=== PATIENT | female | born 1965 | race Caucasian/White ===

== ENCOUNTER → 2017-11-27 | Outpatient (CLI) | payer OTHER ==
[~2017-11-27] MED LIST: INTRINSI B12-F1 EACH PO; IRON150C; MULTI FOR HER1 EAC1 PO; OSTERA TABLET1 EACH PO
[2017-11-29 12:18] LABS: HPV Genotype 16 Not Detected (NOTDET); HPV Genotype 18 Not Detected (NOTDET)
[2017-12-02 09:23] LABS: HPV High Risk Other Not Detected (NOTDET)
== END | disposition home or self-care (01) ==
LOC: LAB 11:34
PROVIDERS: Obstetrics & Gynecology
DX: Z01.419 Encounter for gynecological examination (general) (routine) without abnormal findings (principal)
CPT/HCPCS: 87624; G0123

== ENCOUNTER 2018-07-12 19:55 | Emergency (ER) | payer OTHER ==
[~2018-07-12] VITALS: Ht 157.5 cm; Wt 74.8 kg
== END 2018-07-12 21:02 | disposition home or self-care (01) ==
LOC: ER 19:55
DX: F10.129 Alcohol abuse with intoxication, unspecified (principal); F17.200 Nicotine dependence, unspecified, uncomplicated; Z88.6 Allergy status to analgesic agent; Z91.013 Allergy to seafood
CPT/HCPCS: 99283

== ENCOUNTER 2020-02-04 09:24 | Emergency (ER) | payer OTHER ==
[~2020-02-04] VITALS: Ht 162.6 cm; Wt 90.7 kg
[2020-02-04] MEDS ORDERED: METO50 PO (10:07)
== END 2020-02-04 10:32 | disposition home or self-care (01) ==
LOC: ER 09:24
DX: R04.0 Epistaxis (principal); I10 Essential (primary) hypertension; Z88.6 Allergy status to analgesic agent; Z91.030 Bee allergy status; Z79.899 Other long term (current) drug therapy; F17.200 Nicotine dependence, unspecified, uncomplicated
CPT/HCPCS: 99283

== ENCOUNTER 2020-02-04 21:32 | Emergency (ER) | payer OTHER ==
[~2020-02-04] VITALS: Ht 162.6 cm; Wt 90.7 kg
[~2020-02-04 21:32] MED LIST changes: +METO50 PO
== END 2020-02-05 00:22 | disposition home or self-care (01) ==
LOC: ER 21:32
DX: R04.0 Epistaxis (principal); Z88.6 Allergy status to analgesic agent; Z91.013 Allergy to seafood
CPT/HCPCS: 99282

== ENCOUNTER 2022-12-12 10:33 | Inpatient (IN) | payer OTHER ==
[~2022-12-12] VITALS: Ht 162.6 cm; Wt 91.5 kg
[2022-12-12 12:02] LABS: BASOPHILS ABSOLUTE AUTO 0.06 K/mm3 (0.00-0.23); BASOPHILS PERCENT AUTO 1 % (0-2); EOSINOPHILS ABSOLUTE AUTO 0.22 K/mm3 (0.00-0.68); EOSINOPHILS PERCENT AUTO 2 % (0-6); Hematocrit 43.2 % (33.0-51.0); Hemoglobin 15.1 g/dL (11.5-16.0); IMMATURE GRAN ABSOLUTE AUTO 0.02 K/mm3 (0.00-0.10); IMMATURE GRAN PERCENT AUTO 0 % (0-1); LYMPHOCYTES ABSOLUTE AUTO 1.89 K/mm3 (0.84-5.20); LYMPHOCYTES PERCENT AUTO 19 % (21-46); MONOCYTES ABSOLUTE AUTO 0.98 K/mm3 (0.16-1.47); MONOCYTES PERCENT AUTO 10 % (4-13); Mean Corpuscular HGB 30.9 pg (26.0-34.0); Mean Corpuscular Volume 89 fL (80-100); Mean Platelet Volume 10.6 fL (9.1-12.4); NEUTROPHILS ABSOLUTE AUTO 6.74 K/mm3 (1.96-9.15); NEUTROPHILS PERCENT AUTO 68 % (41-73); Platelet Count 230 K/mm3 (150-400); RDW Coefficient Variation 12.8 % (11.7-14.2); RDW Standard Deviation 41.7 fL (35.1-46.3); Red Blood Cell Count 4.88 M/mm3 (3.80-5.20); White Blood Cell Count 9.91 K/mm3 (4.00-11.30)
[2022-12-12 12:22] LABS: Magnesium, Blood 2.2 mg/dL (1.6-2.4)
[2022-12-12 12:40] LABS: Albumin, Blood 3.7 g/dL (3.4-5.0); Albumin/Globulin Ratio 1.1 (0.8-1.8); Bilirubin, Total 0.7 mg/dL (0.1-1.0); Calcium, Blood 9.2 mg/dL (8.5-10.1); Creatinine, Blood 0.74 mg/dL (0.40-1.00); Globulin, Blood 3.4 g/dL (2.2-4.0); Potassium, Blood 4.2 mmol/L (3.5-5.5); Total Protein, Blood 7.1 g/dL (6.4-8.2)
[2022-12-12 16:15] LABS: D-Dimer, Quantitative 0.64 mg/L FEU (0.00-0.52); International Normalized Ratio 0.96; Prothrombin Time Results 10.1 Sec (9.7-11.5)
--- NOTE | 2022-12-12 23:15 | NUR ---
ADMIT NOTE HANDOFF RECEIVED FROM SERVICE OFFICER DARYA. PT ARRIVED TO FLOOR VIA WC. PT ORIENTED TO UNIT. CALL BUTTON WITHIN REACH. PERSONAL POSSESSIONS WITH PT. TELEMETRY IN PLACE.
--- NOTE | 2022-12-13 03:54 | NUR ---
SHIFT SUMMARY ADMITTED FROM ER FOR CVA THIS SHIFT. TELEMETRY: NSR @ 67 BPM. FULL CODE. CARDIAC DIET. A&O X4, ON RA. US OF BLE PERFORMED, AWAITING RESULTS. AWAITING MORNING LABS. DIFFICULTY WITH WORD FINDING AT TIMES, LEFT FACIAL DROOP NOTED.
[2022-12-13 05:23] LABS: CHOL/HDL RATIO 2.9; Cholesterol 157 mg/dL (50-200); HDL Cholesterol 54 mg/dL (>39); LDL/HDL RATIO 1.6; Low Density Lipoprotein Chol 84 mg/dL (0-110); Triglycerides 96 mg/dL (30-160); Very Low Density Lipoprot Chol 19 mg/dL (6-32)
--- NOTE | 2022-12-13 15:51 | NUR ---
HYPERTENSION 208/[address] GOLDMAN RE ABOVE, T.O. FOR ONE TIME DOSE OF 5MG IV METOPROLOL.
--- NOTE | 2022-12-13 17:16 | NUR ---
Shift Summary A/Ox4, pleasant/cooperative. Up ad sagar, independent with mobility. Electrical Fitter strenths are equal. L facial droop with slightly slurred speech, some drooling noted. Difficulty finding words and some memory impairment. Patient has been quite anxious about taking aspirin d/t hx of gastric bypass. Discussed risks vs benefits (gi bleed vs worsening CVA). BP has been elevated, discussed with Dr. Parrish after 185/104 bp. Ordered to monitor and give meds per EMAR. Tele: SR 74. Denies pain. Eating well.
--- NOTE | 2022-12-14 03:13 | NUR ---
Patient resting in bed at this time.
--- NOTE | 2022-12-14 18:49 | NUR ---
SHIFT SUMMARY: PT ALERT AND ORIENTED X4. PT HAS BEEN PLEASANT AND COOPERATIVE WITH ALL CARE. PT HAD VERY HIGH HYPERTENSION TODAY. NEW B/P MEDICATIONS ADDED TO EMAR. LAST B/P AT 155/90. PT WAS UP AND WALKING THROUGHOUT THE SHIFT. RECEIVED SEVERAL CALLS FROM TELEMETRY TODAY THAT PT HAD ABNORMAL RHYTHMS WHILE WALKING BUT WOULD BE BACK TO SINUS WHILE SITTING. PT ASYMPTOMATIC FOR ANY EKG CHANGES. PT CHANGED TO MECHANICAL SOFT WITH MEDICATIONS WHOLE ONE AT A TIME IN APPLESAUCE. PT HAS NOT C/O PAIN, NUMBNESS, N/V TODAY. PT DID HAVE SMALL NOSEBLEED. RECEIVED ORDER FOR NASAL DECONGESTANT WHICH PT REPORTED SHE TAKES AT HOME. FAMILY AT BEDSIDE. CALL LIGHT IN REACH. BED IN LOWEST POSITION. WILL CONTINUE TO MONITOR.
--- NOTE | 2022-12-15 03:01 | NUR ---
Patient resting in bed, no complaints of pain or discomfort.
[2022-12-15] MEDS ORDERED: AMLO5 PO (11:06)
[2022-12-15] MEDS ORDERED: ATOR40TA PO (11:07)
[2022-12-15] MEDS ORDERED: Aspir 8181 MG PO (11:07)
[2022-12-15] MEDS ORDERED: HYDRA25 PO (11:08)
[2022-12-15] MEDS ORDERED: CLOP75 PO (11:08)
--- NOTE | 2022-12-15 13:04 | NUR ---
DISCHARGE: PT DISCHARGED AT 1500 VIA AUTOMOBILE WITH TERRI. ALL D/C INSTRUCTIONS PROVIDED TO PT. PT UNDERSTANDS THE NEED TO TAKE BLOOD PRESSURE BEFORE MEDICATIONS AND IS AWARE OF A FOLLOW UP APPOINTMENT WITH PRIMARY DOCTOR ON DECEMBER 28 AT 10AM. PROVIDERS OFFICE WILL CALL PT IF SOONER APT BECOMES AVAILABLE. TELE OFF AND IV TAKEN OUT W/O COMPLICATIONS. ALL BELONGINGS SENT WITH PT.
== END 2022-12-15 12:54 | disposition home or self-care (01) | DRG 66 ==
LOC: ER 10:33 → MEDS 10:34
PROVIDERS: Physician Assistant; Student in an Organized Health Care Education/Training Program; ADMIT Internal Medicine
DX: I63.89 Other cerebral infarction (principal); R79.1 Abnormal coagulation profile; I44.7 Left bundle-branch block, unspecified; I10 Essential (primary) hypertension; F17.210 Nicotine dependence, cigarettes, uncomplicated; D50.9 Iron deficiency anemia, unspecified; R29.810 Facial weakness; R47.81 Slurred speech; Z23 Encounter for immunization; Z79.899 Other long term (current) drug therapy; Z88.8 Allergy status to other drugs, medicaments and biological substances; Z91.013 Allergy to seafood; Z98.84 Bariatric surgery status; Z90.49 Acquired absence of other specified parts of digestive tract; Z98.890 Other specified postprocedural states
CPT/HCPCS: 36415; 70450; 70496; 70498; 70551; 71045; 80053; 80061; 83036; 83735; 83880; 84484; 85025; 85379; 85610; 85651; 86140; 90686; 92610; 93005; 93010; 93306; 93970; 96372; 97116; 97161; 99285-25; A9270; G0008; G0378; J1650; Q9967

== ENCOUNTER → 2024-05-15 | Outpatient (CLI) | payer OTHER ==
[~2024-05-15] MED LIST changes: +AMLO5 PO; +ATOR40TA PO; +Aspir 8181 MG PO; +CLOP75 PO; +HYDRA25 PO; +Voltaren100 GM TOP
[2024-05-27 12:41] LABS: HPV HIGH RISK BY TMA Not Detected; HPV SOURCE Cervical/Vag
== END | disposition home or self-care (01) ==
LOC: LAB 18:40 → LAB SHORT 18:40
PROVIDERS: Obstetrics & Gynecology
DX: Z01.411 Encounter for gynecological examination (general) (routine) with abnormal findings (principal)
CPT/HCPCS: 87624; G0123

== ENCOUNTER → 2024-05-15 | Outpatient (CLI) | payer OTHER | LOC: LAB SHORT 07:31 → LAB 07:31 | DX: N95.0 Postmenopausal bleeding (principal) | CPT/HCPCS: 88305 ==

== ENCOUNTER 2024-05-28 11:48 | Inpatient (IN) | payer OTHER ==
[~2024-05-28] VITALS: Ht 162.6 cm; Wt 78.0 kg
[2024-05-28 12:14] LABS: BASOPHILS ABSOLUTE AUTO 0.04 K/mm3 (0.00-0.23); BASOPHILS PERCENT AUTO 0 % (0-2); EOSINOPHILS ABSOLUTE AUTO 0.01 K/mm3 (0.00-0.68); EOSINOPHILS PERCENT AUTO 0 % (0-6); Hematocrit 33.7 % (33.0-51.0); Hemoglobin 12.5 g/dL (11.5-16.0); IMMATURE GRAN ABSOLUTE AUTO 0.03 K/mm3 (0.00-0.10); IMMATURE GRAN PERCENT AUTO 0 % (0-1); LYMPHOCYTES ABSOLUTE AUTO 1.01 K/mm3 (0.84-5.20); LYMPHOCYTES PERCENT AUTO 9 % (21-46); MONOCYTES ABSOLUTE AUTO 0.68 K/mm3 (0.16-1.47); MONOCYTES PERCENT AUTO 6 % (4-13); Mean Corpuscular HGB 35.2 pg (26.0-34.0); Mean Corpuscular HGB Conc 37.1 g/dL (31.5-36.5); Mean Corpuscular Volume 95 fL (80-100); Mean Platelet Volume 9.5 fL (9.1-12.4); NEUTROPHILS ABSOLUTE AUTO 9.78 K/mm3 (1.96-9.15); NEUTROPHILS PERCENT AUTO 85 % (41-73); Platelet Count 189 K/mm3 (150-400); RDW Coefficient Variation 12.1 % (11.7-14.2); RDW Standard Deviation 42.5 fL (35.1-46.3); Red Blood Cell Count 3.55 M/mm3 (3.80-5.20); White Blood Cell Count 11.55 K/mm3 (4.00-11.30)
[2024-05-28 13:00] LABS: Albumin, Blood 3.1 g/dL (3.4-5.0); Albumin/Globulin Ratio 0.8 (0.8-1.8); Bun/Creatinine Ratio 15.4 (12.0-20.0); Calcium, Blood 9.5 mg/dL (8.5-10.1); Creatinine, Blood 0.58 mg/dL (0.40-1.00); Potassium, Blood 2.3 mmol/L (3.5-5.5); Total Protein, Blood 7.1 g/dL (6.4-8.2)
[2024-05-28] MEDS ORDERED: NS 1,000 ML IV SCH (13:10)
[2024-05-28] MEDS ORDERED: Metoclopramide HCl 5MG / ML 2ML Vial IV ONE (13:10)
[2024-05-28] MEDS ORDERED: Potassium Chloride 40 MEQ in NS 250 ML IV ONE (13:10)
[2024-05-28] MEDS ORDERED: Magnesium Sulf 2 GM/Water 50ML 50 ML IV ONE (14:20)
[2024-05-28 14:46] LABS: Influenza A, PCR NEGATIVE (NEGATIVE); Influenza B, PCR NEGATIVE (NEGATIVE); Resp Syncytial Virus, PCR NEGATIVE (NEGATIVE); SARS-Cov-2 (COVID-19) PCR, MMC NEGATIVE (NEGATIVE)
[2024-05-28] MEDS ORDERED: Acetaminophen 325 MG TABLET PO PRN (15:15)
[2024-05-28 15:20] LABS: Source, Urine Clean Catch
[2024-05-28] MEDS ORDERED: Ondansetron HCl 2 MG / ML 2ML Vial IV PRN (15:20)
[2024-05-28] MEDS ORDERED: Potassium Chloride 20 MEQ/15 ML UDC PO ONE (15:20)
[2024-05-28 15:43] LABS: Appearance, Urine Clear (Clear); Bilirubin, Urine Neg (Neg); Blood, Urine 1+ (Neg); Color, Urine Yellow (P-Yellow); Glucose Qualitative, Urine Neg (Neg); Ketones, Urine 1+ (Neg); Leukocyte Esterase, Urine Neg (Neg); Nitrite, Urine Neg (Neg); Protein, Urine Neg (Neg); Specific Gravity, Urine 1.005 (1.003-1.022); Urobilinogen, Urine NORM (Normal); pH, Urine 6.5 (5.0-8.0)
[2024-05-28 15:51] LABS: Bacteria Many /hpf; Squamous Epithelial Cells Few /hpf (Few); White Blood Cells, Urine 0-2 /hpf (0-5)
[2024-05-28] MEDS ORDERED: Pantoprazole Sodium 40 MG Injection IV SCH (16:00)
[2024-05-28] MEDS ORDERED: NS KCl 20mEq 1,000 ML IV SCH (16:00)
[2024-05-28 17:29] VITALS: BP 122/79
[2024-05-28] MEDS ORDERED: NS 250 ML IV PRN (18:00)
--- NOTE | 2024-05-28 18:34 | NUR ---
SHIFT SUMMARY PT A&OX3-4, VSS, BEDRIDDEN AT THIS TIME DUE TO WEAKNESS, TOLERATING PO, VOIDING, AND DENIED PAIN. KCL INFUSING AT 100 MLS/HR. CALL LIGHT WITHIN REACH AND PT ABLE TO MAKE NEEDS KNOWN.
[2024-05-28 19:19] LABS: Albumin, Blood 2.8 g/dL (3.4-5.0); Anion Gap 14 mmol/L (3-11); Blood Urea Nitrogen 9 mg/dL (8-24); Bun/Creatinine Ratio 14.7 (12.0-20.0); CO2, Blood 29 mmol/L (21-32); Calcium, Blood 8.5 mg/dL (8.5-10.1); Chloride, Blood 93 mmol/L (98-108); Creatinine, Blood 0.61 mg/dL (0.40-1.00); Glomerular Filtration Rate 104 (60-); Glucose, Blood 106 mg/dL (70-99); Magnesium, Blood 2.5 mg/dL (1.6-2.4); Phosphorus, Blood 1.9 mg/dL (2.5-4.9); Sodium, Blood 133 mmol/L (136-145)
[2024-05-28 19:38] VITALS: BP 131/93
[2024-05-28] MEDS ORDERED: Metoprolol Tartrate 50 MG Tab PO SCH (21:00)
[2024-05-28] MEDS ORDERED: Misc. Topical TOP SCH (21:00)
[2024-05-28] MEDS ORDERED: HydrALAZINE HCl 25 MG Tab PO SCH (21:00)
--- NOTE | 2024-05-29 03:34 | NUR ---
SHIFT SUMMARY PT. IS A&O X2-4, CONFUSED, NOT ABLE TO STAND UP WITH 2-PERSON ASSISTANCE D/T WEAKNESS, USING GAITBELT AND FWW IN ORDER TO AMBULATE STEPS TO THE BEDSIDE COMMODE. PT.IS ORIENTED TO SITUATION, PERSON AND SELF. PT.IS SLOW TO RESPOND, AND FOLLOW DIRECTION. SPEECH IS RAPID. PT. DENIES PAIN,SOB, DIZZINESS. WHEN AWAKE IN BED, PT. APPEARS NAUSEOUS, ABLE TO TAKE SMALL SIPS, AND ROLLS THE MEDICATION/PILL/OR CAPSULE IN HER MOUTH BEFORE ABLE TO SWALLOW IT DOWN. PT.REPORTS THAT HAVE NOT BEEN ABLE TO EAT FOR WEEKS. PT. IS ON LIQUID DIET; BROTH AND COLD DRINKS PROVIDED, POOR PO INTAKE DURING THIS SHIFT. PT. CONTINUES ON IV INFUSION NS KC1@100MLS/HR. AT HS PT.USED A BEDPAN D/T URGE TO HAVE A BM. PT. HAD A XXL DIARRHEA, DARK BROWN IN COLOR. WHEN CHECKED DURING Q1 TO PRN, PT.LAYING IN BED, SMILING, AND WEARING EYEGLASSES. BED ALARM FOR SAFETY. NO ACUTE EVENTS NOTED/REPORTED DURING THIS SHIFT. BED AT THE LOWEST POSITION, CALL LIGHT IN REACH, REORIENTED TO CALL LIGHT T/O THIS SHIFT. WILL HANDOFF TO THE INCOMING SHIFT NURSE.
[2024-05-29 03:52] VITALS: BP 154/99
[2024-05-29 05:14] LABS: Hematocrit 30.2 % (33.0-51.0); Hemoglobin 10.9 g/dL (11.5-16.0); Mean Corpuscular HGB 34.7 pg (26.0-34.0); Mean Corpuscular HGB Conc 36.1 g/dL (31.5-36.5); Mean Corpuscular Volume 96 fL (80-100); Mean Platelet Volume 9.7 fL (9.1-12.4); Platelet Count 158 K/mm3 (150-400); RDW Coefficient Variation 12.3 % (11.7-14.2); RDW Standard Deviation 43.1 fL (35.1-46.3); Red Blood Cell Count 3.14 M/mm3 (3.80-5.20); White Blood Cell Count 9.93 K/mm3 (4.00-11.30)
[2024-05-29 05:47] LABS: Albumin, Blood 2.7 g/dL (3.4-5.0); Albumin/Globulin Ratio 0.8 (0.8-1.8); Bilirubin, Total 1.5 mg/dL (0.1-1.0); Bun/Creatinine Ratio 13.6 (12.0-20.0); Calcium, Blood 8.2 mg/dL (8.5-10.1); Creatinine, Blood 0.44 mg/dL (0.40-1.00); Globulin, Blood 3.2 g/dL (2.2-4.0); Total Protein, Blood 5.9 g/dL (6.4-8.2)
[2024-05-29 07:14] VITALS: BP 147/99
[2024-05-29] MEDS ORDERED: Atorvastatin 40 MG Tab PO SCH (09:00)
[2024-05-29] MEDS ORDERED: AmLODIPine Besylate 5 MG Tab PO SCH (09:00)
[2024-05-29] MEDS ORDERED: Aspirin 81 MG TabEC PO SCH (09:00)
[2024-05-29] MEDS ORDERED: Clopidogrel Bisulfate 75 MG Tab PO SCH (09:00)
[2024-05-29] MEDS ORDERED: Enoxaparin 40 MG/0.4 ML SYR SC SCH (09:00)
[2024-05-29] MEDS ORDERED: Potassium Chloride 20 MEQ/15 ML UDC PO SCH (09:00)
[2024-05-29 14:36] VITALS: BP 140/93
--- NOTE | 2024-05-29 17:42 | NUR ---
SHIFT SUMMARY PT A&OX2-4 W/ CONFUSION AT TIMES, VSS, TOLERATING SMALL AMOUNTS OF PO, VOIDING, AND DENIED PAIN. PT DENIED N/V T/O SHIFT. PT CONT TO BE WEAK AND UNABLE TO AMB. SPEECH EVALUATED PT THIS AM DUE TO PT DIFFICULTY W/ TAKING MEDICATIONS, SEE SPEECH NOTES. KCL INFUSING AT 100 MLS/HR. NO OTHER ACUTE CHANGES THIS SHIFT. CALL LIGHT WITHIN REACH AND BED ALARM ON FOR SAFETY.
[2024-05-29 19:21] VITALS: BP 127/94
[2024-05-30 03:37] VITALS: BP 138/107
--- NOTE | 2024-05-30 03:56 | NUR ---
SHIFT SUMMARY PT. IS CONFUSED, THIS EXECUTIVE CHEF HELD ALL SCHEDULED HS MEDS D/T ASPIRATION RISK/ DIFFICULTY TO AROUSE THE PT. PT. STATES TO THIS EXECUTIVE CHEF:"DO YOU FEEL LIKE MONKEYING AROUND?" WHEN THIS EXECUTIVE CHEF REORIENTED THE PT. AND ASKED, "DO YOU KNOW WHERE YOU ARE?," PT. STATED:"[facility]." WHEN ASKED, HOW MANY GRANDCHILDREN DO YOU HAVE; PT. SHOWED TWO FINGERS UP. THIS EXECUTIVE CHEF CALLED AND UPDATED PT.'S SO PER HIS REQUEST. SO SHARED THAT PT AND HIM TAKE CARE OF HER TWO YOUNG GRANDDAUGHTERS MANAGER MEDICAL DEVICE. NS KCl INFUSING ORDERED. URINE ON PUREWIC CONTAINER CHARCOAL/ DARK KC COLOR. NO PO INTAKE DURING THIS SHIFT. PT. LAYING IN BED, DENIED A NEED FOR A BLANKET. SMILING ON AND OFF T/O THE NIGHT. BED AT THE LOWEST POSITION, CALL LIGHT IN REACH.WILL HANDOFF TO THE INCOMING SHIFT NURSE.
[2024-05-30 05:26] LABS: BASOPHILS ABSOLUTE AUTO 0.02 K/mm3 (0.00-0.23); BASOPHILS PERCENT AUTO 0 % (0-2); EOSINOPHILS ABSOLUTE AUTO 0.04 K/mm3 (0.00-0.68); EOSINOPHILS PERCENT AUTO 0 % (0-6); Hematocrit 31.9 % (33.0-51.0); Hemoglobin 11.7 g/dL (11.5-16.0); IMMATURE GRAN ABSOLUTE AUTO 0.08 K/mm3 (0.00-0.10); IMMATURE GRAN PERCENT AUTO 1 % (0-1); LYMPHOCYTES ABSOLUTE AUTO 1.37 K/mm3 (0.84-5.20); LYMPHOCYTES PERCENT AUTO 13 % (21-46); MONOCYTES ABSOLUTE AUTO 0.62 K/mm3 (0.16-1.47); MONOCYTES PERCENT AUTO 6 % (4-13); Mean Corpuscular HGB 35.3 pg (26.0-34.0); Mean Corpuscular HGB Conc 36.7 g/dL (31.5-36.5); Mean Corpuscular Volume 96 fL (80-100); Mean Platelet Volume 10.1 fL (9.1-12.4); NEUTROPHILS ABSOLUTE AUTO 8.49 K/mm3 (1.96-9.15); NEUTROPHILS PERCENT AUTO 80 % (41-73); Platelet Count 152 K/mm3 (150-400); RDW Coefficient Variation 12.5 % (11.7-14.2); RDW Standard Deviation 44.2 fL (35.1-46.3); Red Blood Cell Count 3.31 M/mm3 (3.80-5.20); White Blood Cell Count 10.62 K/mm3 (4.00-11.30)
[2024-05-30 05:43] LABS: Bun/Creatinine Ratio 10.8 (12.0-20.0); Calcium, Blood 7.6 mg/dL (8.5-10.1); Creatinine, Blood 0.37 mg/dL (0.40-1.00); Magnesium, Blood 1.4 mg/dL (1.6-2.4); Potassium, Blood 3.3 mmol/L (3.5-5.5)
[2024-05-30 07:50] VITALS: BP 139/108
[2024-05-30] MEDS ORDERED: Magnesium Sulf 2 GM/Water 50ML 50 ML IV ONE (08:00)
--- NOTE | 2024-05-30 10:41 | NUR ---
TELE NOTIFIED THIS NURSE OF PT QTC OF .65. PT ASYMPTOMATIC AND DENIED CHEST PAIN AND OR PRESSURE. THIS NURSE NOTIFIED DURING HER AM ROUND ON PT.
[2024-05-30] MEDS ORDERED: Prochlorperazine Edisylate 10 mg Vial IV PRN (10:55)
[2024-05-30] MEDS ORDERED: Folic Acid 1 MG in NS 50 ML IV SCH (12:00)
[2024-05-30] MEDS ORDERED: Thiamine HCl 100 MG in NS 50 ML IV SCH (12:00)
[2024-05-30 15:21] VITALS: BP 102/79
[2024-05-30 15:51] VITALS: BP 100/78
--- NOTE | 2024-05-30 18:31 | NUR ---
SHIFT SUMMARY PT A&OX3-CONFUSED AT TIMES, VSS, AMB W TO THE BSC X1 W/ 2P ASSIST, TOLERATING SMALL AMOUNT OF PO, VOIDING, AND DENIED N/V AND OR PAIN . THIS NURSE NOTIFED BY TELE OF PT'S QTC OF .65. PT ASYMPTOMATIC AND DENIED CHEST PAIN AND OR PRESSURE. PROVIDER AWARE AND ZOFRAN D/C. IV FOLIC ACID AND THIAMINE GIVEN. NO OTHER ACUTE CHANGES THIS SHIFT. CALL LIGHT WITHIN REACH AND BED ALARM ON FOR SAFETY.
[2024-05-30 20:25] VITALS: BP 113/84
[2024-05-31 03:36] VITALS: BP 120/94
--- NOTE | 2024-05-31 04:30 | NUR ---
SHIFT SUMMARY GT WAS ALERT AND ORIENTED X3 ON ASSESSMENT. PT DID BECOME CONFUSED DURING THE NIGHT. PT ABLE TO TRANSFER TO BSC W/ ASSIST OF ONE STAFF. PT C/O ISSUES WITH SWALLOWING. PER DAY SHIFT RN, PT WAS SEEN BY . NO ACUTE EVENTS, NO NOTED CHANGES TO PT CONDITION
[2024-05-31 06:13] LABS: Hematocrit 33.1 % (33.0-51.0); Hemoglobin 11.5 g/dL (11.5-16.0); Mean Corpuscular HGB 34.4 pg (26.0-34.0); Mean Corpuscular HGB Conc 34.7 g/dL (31.5-36.5); Mean Corpuscular Volume 99 fL (80-100); Mean Platelet Volume 9.8 fL (9.1-12.4); Platelet Count 166 K/mm3 (150-400); RDW Coefficient Variation 12.6 % (11.7-14.2); Red Blood Cell Count 3.34 M/mm3 (3.80-5.20); White Blood Cell Count 7.58 K/mm3 (4.00-11.30)
[2024-05-31 06:43] LABS: Albumin, Blood 2.8 g/dL (3.4-5.0); Albumin/Globulin Ratio 0.8 (0.8-1.8); Bilirubin, Total 2.5 mg/dL (0.1-1.0); Bun/Creatinine Ratio 13.5 (12.0-20.0); Calcium, Blood 8.2 mg/dL (8.5-10.1); Creatinine, Blood 0.52 mg/dL (0.40-1.00); Globulin, Blood 3.6 g/dL (2.2-4.0); Magnesium, Blood 1.6 mg/dL (1.6-2.4); Phosphorus, Blood 1.2 mg/dL (2.5-4.9); Potassium, Blood 4.3 mmol/L (3.5-5.5); Total Protein, Blood 6.4 g/dL (6.4-8.2)
[2024-05-31 07:24] VITALS: BP 129/97
[2024-05-31] MEDS ORDERED: Mag Sulfate 1 GM/D5% 100ML 100 ML IV STA (08:30)
--- NOTE | 2024-05-31 10:53 | NUR ---
REPORT RECIEVED VERIFIED PT A/O X 2-3 FORGETFUL BUT IS WILLING TO ANSWER QUESTIONS. PT WANTS TO WAIT ON MEDICATIONS SO MEDS ARE AT BEDSIDE, PT RESPONSES AT TIMES SARCASTIC AND MAY BE INCONSISTANT WITH SITUATION.
[2024-05-31] MEDS ORDERED: NS IV SCH (16:00)
[2024-05-31] MEDS ORDERED: THIAMINE HCL IV SCH (16:00)
[2024-05-31 16:18] VITALS: BP 118/94
--- NOTE | 2024-05-31 18:08 | NUR ---
CIWA ORDERED PT BOYFRIEND NOTIFIED RN THAT PT "DRINKS QUITE A BIT AT HOME" PT HAS TREMORS CURRENTLY. DR. SILVESTRE NOTIFIED OF THIS AND CIWAS WERE ORDERED WITH PO LIBRIUM AND IV ATIVAN.
[2024-05-31] MEDS ORDERED: ChlordiazePOXIDE 25 MG Cap PO PRN (18:10)
[2024-05-31] MEDS ORDERED: LORazepam 2 MG/ML 1ML Injection IV PRN (18:10)
--- NOTE | 2024-05-31 19:25 | NUR ---
report received verified pt a/o x2-3 at first seems alert but becomes confused with direct questioning. pt slow to move and stiff is able to make needs met just a little delayed. family at bedside pt quietly laying in bed no c/o pain no distress will cont to monitor. partner spoke with me about pt drinking habits. pt has hx of detox and partner found significant amount of alcohol in truck. MD notified and pt put on SATISH with librium given. i explained to pt why and she seemed a little frustrated but will to comply.
[2024-05-31 20:55] VITALS: BP 99/77
--- NOTE | 2024-06-01 04:05 | NUR ---
SHIFT SUMMARY: Pt admitted for hypokalemia and is a full code. Is alert and able to make needs known. ADLs have been SBA. denies pain or discomfort when asked. Telly reports sinus in the 80s with a bundle branch.
[2024-06-01 04:23] VITALS: BP 126/97
[2024-06-01 06:33] LABS: Magnesium, Blood 1.7 mg/dL (1.6-2.4)
[2024-06-01 06:37] LABS: Albumin, Blood 2.6 g/dL (3.4-5.0); Albumin/Globulin Ratio 0.8 (0.8-1.8); Bilirubin, Total 1.3 mg/dL (0.1-1.0); Bun/Creatinine Ratio 7.6 (12.0-20.0); Calcium, Blood 8.1 mg/dL (8.5-10.1); Creatinine, Blood 0.52 mg/dL (0.40-1.00); Globulin, Blood 3.3 g/dL (2.2-4.0); Potassium, Blood 4.1 mmol/L (3.5-5.5); Total Protein, Blood 5.9 g/dL (6.4-8.2)
[2024-06-01 07:30] VITALS: BP 133/87
--- NOTE | 2024-06-01 11:08 | NUR ---
pt doing well today no change since yesturday, has been calm and cooperative since medicatied last evening. pt was incontinent and doesnt seem to know what is happening at times. SATISH is only 3 at this time and pt states she feels very comfortable. has been very pleasent so far
[2024-06-01 15:05] VITALS: BP 108/86
--- NOTE | 2024-06-01 17:59 | NUR ---
HAVE BEEN ENC PT TO EAT BUT HAS BEEN REFUSING OR STATES SHE WILL TRY BUT THEN WONT EAT. SPOKE WITH DR SILVESTRE ABOUT MAYBE PT HAD ANOTHER STROKE BUT MD FEELS ITS MORE RELATED TO WITHDRAWL. PT INSISTS SHE IS FEELING FINE OTHER THAN HAVING INTENSE PAIN ALL OVER BODY. WILL CONT TO MONITOR
[2024-06-01 19:53] VITALS: BP 117/84
[2024-06-02 05:47] VITALS: BP 116/62
[2024-06-02 06:04] LABS: Hematocrit 33.1 % (33.0-51.0); Hemoglobin 11.2 g/dL (11.5-16.0); Mean Corpuscular HGB 34.4 pg (26.0-34.0); Mean Corpuscular HGB Conc 33.8 g/dL (31.5-36.5); Mean Corpuscular Volume 102 fL (80-100); Platelet Count 164 K/mm3 (150-400); RDW Coefficient Variation 12.9 % (11.7-14.2); Red Blood Cell Count 3.26 M/mm3 (3.80-5.20); White Blood Cell Count 7.73 K/mm3 (4.00-11.30)
--- NOTE | 2024-06-02 06:15 | NUR ---
SHIFT SUMMARY: Pt admitted for hypokalemia is a full code. Is alert and able to make needs known. ADLs have been 1p during shift. Denies pain or discomfort when asked. Telly reports sinus in the 60 with a bundle branch.
[2024-06-02 06:32] LABS: Bun/Creatinine Ratio 7.3 (12.0-20.0); Calcium, Blood 8.4 mg/dL (8.5-10.1); Creatinine, Blood 0.55 mg/dL (0.40-1.00); Magnesium, Blood 1.6 mg/dL (1.6-2.4); Phosphorus, Blood 2.2 mg/dL (2.5-4.9); Potassium, Blood 4.5 mmol/L (3.5-5.5)
[2024-06-02 08:17] VITALS: BP 116/87
[2024-06-02] MEDS ORDERED: Magnesium Sulf 2 GM/Water 50ML 50 ML IV ONE (08:20)
--- NOTE | 2024-06-02 19:52 | NUR ---
report recieved. pt was very confused last night and was very incontinent of urine and stool, groining area became very red so cream was placxed and making sure it stayed dry throughout shift. after waking pt i assisted to bedside commode, pt was 1 to 2 person assist and was very willing to try, once i assisted pt back to bed pt was a little anxious and tremulus, ciwa was 11 so i med pt. pt now sleeping soundly. pt awoke in better state and promised to eat lunch but did not. after attemping to feed pt pt refused. ct scan order for pt. pt back from CT and was assisted to bsc, doing much better this time. pt now back in bed with fam and friends at bedside
[2024-06-02 20:25] VITALS: BP 116/77
--- NOTE | 2024-06-03 01:35 | NUR ---
06/02/24 2113 PT LYING IN BED, DENIES ANY DISCOMFORT AT THIS TIME. CIWA WAS A 0. IV IS PAINFUL WHEN FLUSHED. DC'D IV, WILL RESTART ARNULFO. NO OTHER APPARENT SIGNS OF DISTRESS. CALL LIGHT IS IN REACH.
--- NOTE | 2024-06-03 01:37 | NUR ---
0000 PT LYING IN BED, EYES CLOSED, APPEARS TO BE RESTING. BREATHING IS EVEN, UNLABORED. NO APPARENT SIGNS OF DISTRESS. CALL LIGHT IS IN REACH.
--- NOTE | 2024-06-03 01:37 | NUR ---
06/02/24 0219 NEW IV STARTED, PT TOLERATED PROCEDURE WELL. NO APPARENT SIGNS OF DISTRESS. CALL LIGHT IS IN REACH.
[2024-06-03 03:51] VITALS: BP 125/88
--- NOTE | 2024-06-03 04:29 | NUR ---
0200 PT LYING IN BED, EYES CLOSED, APPEARS TO BE RESTING. BREATHING IS EVEN, UNLABORED. NO APPARENT SIGNS OF DISTRESS. CALL LIGHT IS IN REACH.
--- NOTE | 2024-06-03 04:29 | NUR ---
ASSISTED DIE SINKER APPRENTICE IN GETTING PT TO BSC, CHANGING ATTENDS, GOWN AND LINEN. PT TOLERATED PROCEDURE WELL. DIE SINKER APPRENTICE GOT PT A WARM BLANKET. NO OTHER APPARENT SIGNS OF DISTRESS. CALL LIGHT IS IN REACH.
--- NOTE | 2024-06-03 05:38 | NUR ---
PT LYING IN BED, EYES CLOSED, APPEARS TO BE RESTING. BREATHING IS EVEN, UNLABORED. NO APPARENT SIGNS OF DISTRESS. CALL LIGHT IS IN REACH. NO OTHER CHANGES THIS SHIFT.
[2024-06-03 06:31] LABS: Bun/Creatinine Ratio 4.7 (12.0-20.0); Calcium, Blood 8.2 mg/dL (8.5-10.1); Creatinine, Blood 0.63 mg/dL (0.40-1.00); Potassium, Blood 3.8 mmol/L (3.5-5.5)
[2024-06-03 07:51] VITALS: BP 118/74
[2024-06-03 14:53] VITALS: BP 108/76
[2024-06-03] MEDS ORDERED: Dronabinol 2.5 MG Cap PO SCH (16:30)
[2024-06-03 16:32] VITALS: BP 97/68
--- NOTE | 2024-06-03 16:54 | NUR ---
PT IS A/OX3, PLEASANT AND COOPERATIVE. THE PT IS UP TO THE BSC WITH ASSIST 1-2 PERSON. THE PT WORKED WITH THE PHYSICAL THERAPIST TODAY. PT APPEARS TO BE BREATHING EASILY JUAN DIEGO RA. THE PT DENIED ANY PAIN N/V. PT HAS A POOR APPETITE. MARINOL WAS STARTED TODAY TO INCREASE THE APPETITE. PT HAD MULTIPLE VISITORS T/O THE DAY. CALL LIGHT IN REACH BED IN THE LOW POSITION
[2024-06-03 20:25] VITALS: BP 100/70
--- NOTE | 2024-06-04 04:20 | NUR ---
SHIFT SUMMARY: PT IS ALERT AND ORIENTED WITH MINOR CONFUSION. PT CALLS APPROPRIATELY. PT IS A 1-2 PERSON ASSIST TO THE BSC. PT WAS INCONTINENT ON SEVERAL OCCASIONS, CHANGED AND CLEANED NEEDED. PT DENIES PAIN, NAUSEA, VOMITING, AND SOB. PT SLEPT MUCH OF THE NIGHT. NO ACUTE CHANGES OR COMPLICATIONS. BED IN LOW POSITION, CALL LIGHT WITHIN REACH. WILL REPORT TO DAY NURSE.
[2024-06-04 04:25] VITALS: BP 126/80
[2024-06-04 06:26] LABS: Bun/Creatinine Ratio 7.8 (12.0-20.0); Calcium, Blood 8.3 mg/dL (8.5-10.1); Creatinine, Blood 0.51 mg/dL (0.40-1.00); Magnesium, Blood 1.8 mg/dL (1.6-2.4); Phosphorus, Blood 3.7 mg/dL (2.5-4.9); Potassium, Blood 4.2 mmol/L (3.5-5.5)
[2024-06-04 07:08] VITALS: BP 137/93
[2024-06-04] MEDS ORDERED: Aspirin 81 MG Chew PO SCH (09:00)
[2024-06-04] MEDS ORDERED: Thiamine HCl 100 MG Tab PO SCH (09:00)
--- NOTE | 2024-06-04 09:37 | NUR ---
CALLED MONIQUE SILVESTRE AND SPOKE TO HER ABOUT PT POTASSIUM DOSE. ORDER TO HOLD TODAYS DOSE. PT WAS SEEN BY HYGENIST WHO NOTED THRUSH. SPOKE TO DR SILVESTRE SHE IS AWARE AND WILL PLACE ORDERS.
[2024-06-04] MEDS ORDERED: THIAMINE HCL IV SCH (11:00)
[2024-06-04] MEDS ORDERED: NS IV SCH (11:00)
[2024-06-04] MEDS ORDERED: Nystatin 100,000 Unit/ML Susp 5 ML UDC MT SCH (13:00)
[2024-06-04 15:18] VITALS: BP 116/77
[2024-06-04 19:20] VITALS: BP 108/65
--- NOTE | 2024-06-04 20:21 | NUR ---
SHIFT SUMMARY- PT ALERT AND ORIENTED TO SELF NO S&S OF DISTRESS NOTED AT THE TIME OF SHIFT CHANGE. PT HAS A BED ALARM SET FOR SAFETY. IV INFUSING CURRENTLY. 2PA WITH TRANDSFERS TO THE BSC. SPEECH THERAPY CAME TO SEE THE PT MEDS NO LONGER CRUSHED IN APPLESAUCE, BUT WHOLE WITH WATER. PT SEEMS TO CALL APROPRIATELY. BED ALARM SET FOR SAFETY SHE IS FORGETFUL.
[2024-06-05 03:55] VITALS: BP 101/65
[2024-06-05 06:14] LABS: Hematocrit 28.3 % (33.0-51.0)
[2024-06-05 06:35] LABS: Bun/Creatinine Ratio 7.3 (12.0-20.0); Calcium, Blood 8.3 mg/dL (8.5-10.1); Creatinine, Blood 0.55 mg/dL (0.40-1.00); Magnesium, Blood 1.3 mg/dL (1.6-2.4); Potassium, Blood 4.4 mmol/L (3.5-5.5)
[2024-06-05 07:06] VITALS: BP 127/81
--- NOTE | 2024-06-05 07:44 | NUR ---
SHIFT SUMMARY: PATIENT SLEPT WELL THIS SHIFT, IVF INFUSING PER MD ORDER. USED THE PERWICK FOR THE FIRST HALF OF THE NIGHT AND THEN REQUESTED TO BE ASSISTED TO THE BSC TO URINATE. PERWICK WAS NOT REPLACED, BRIEF IS IN PLACE.
[2024-06-05] MEDS ORDERED: Mag Sulfate 1 GM/D5% 100ML 100 ML IV STA (08:31)
--- NOTE | 2024-06-05 09:11 | NUR ---
MD CALL [facility] REPORTED RECENT ST CHANGES. DR LEON NOTIFIED AND TELEPHONE ORDER FOR ECG ENTERED INTO [facility].
[2024-06-05 14:18] VITALS: BP 101/79
[2024-06-05] MEDS ORDERED: Acetaminophen650 M1 PO (15:10)
[2024-06-05] MEDS ORDERED: PANT40 PO (15:11)
[2024-06-05] MEDS ORDERED: POTA20LUD PO (15:11)
[2024-06-05 15:45] LABS: SARS-Cov-2 (COVID-19) PCR, MMC NEGATIVE (NEGATIVE)
--- NOTE | 2024-06-05 16:44 | NUR ---
DISCHARGE TO [facility] AT 1643 VIA [facility]/C AMBULANCE TRANSPORT. FAMILY AT BEDSIDE AT TIME OF TRANSFER. MS ELI HAS GOT UP TO THE CHAIR TWICE TODAY ANND SAT UP FOR A FEW HOURS, 1 PERSON ASSIST WITH LOTS OF VERBAL DIRECTION. SHE IS ORIENTATED TO SELF, [facility], DATE, NOT SITUATION AND IS FORGETFUL. DENIED ANY PAIN TODAY. PIV REMOVED INTACT PRIOR TO DISCHARGE. TELEMETRY REMOVED. PT/FAMILY VOICED NO NEW CONCERNS PRIOR TO DISCHARGE. REPORT CALLED TO ANNE-MARIE AT [facility].
== END 2024-06-05 16:48 | DRG 641 ==
LOC: ER 11:48 → MEDS 11:49
PROVIDERS: Family Medicine; Hospitalist; Physician Assistant; Student in an Organized Health Care Education/Training Program; ADMIT Internal Medicine
DX: E87.6 Hypokalemia (principal); F10.139 Alcohol abuse with withdrawal, unspecified; E51.2 Wernicke's encephalopathy; E51.9 Thiamine deficiency, unspecified; E83.42 Hypomagnesemia; E87.1 Hypo-osmolality and hyponatremia; E86.0 Dehydration; E87.8 Other disorders of electrolyte and fluid balance, not elsewhere classified; I10 Essential (primary) hypertension; D72.829 Elevated white blood cell count, unspecified; R74.8 Abnormal levels of other serum enzymes; E78.5 Hyperlipidemia, unspecified; E53.8 Deficiency of other specified B group vitamins; K21.9 Gastro-esophageal reflux disease without esophagitis; D50.9 Iron deficiency anemia, unspecified; E80.6 Other disorders of bilirubin metabolism; R74.01 Elevation of levels of liver transaminase levels; Z88.8 Allergy status to other drugs, medicaments and biological substances; Z91.013 Allergy to seafood; Z98.84 Bariatric surgery status; Z79.899 Other long term (current) drug therapy; Z79.82 Long term (current) use of aspirin; Z86.73 Personal history of transient ischemic attack (TIA), and cerebral infarction without residual deficits; Z90.49 Acquired absence of other specified parts of digestive tract; Z98.890 Other specified postprocedural states
CPT/HCPCS: 0241U; 36415; 51798; 70450; 74177; 80048; 80053; 80069; 81001; 82248; 82607; 82746; 83690; 83735; 84100; 85014; 85018; 85025; 85027; 87086; 92526; 92610; 93005; 93010; 96365-59; 96366; 96368; 96372; 96375; 96376; 97116; 97161; 97166; 97530; 97535; 99285-25; A9270; C9113; G0378; J1650; J2765; J3411; J3475; J3480; J7030; J7050; Q0167; Q9967; U0002

== ENCOUNTER → 2025-04-30 | Outpatient (CLI) | payer OTHER ==
[~2025-04-30] MED LIST changes: +Acetaminophen650 M1 PO; +PANT40 PO; +POTA20LUD PO
[2025-04-30 14:48] LABS: Albumin, Blood 4.2 g/dL (3.4-5.0); Albumin/Globulin Ratio 1.4 (0.8-1.8); Calcium, Blood 9.4 mg/dL (8.5-10.1); Creatinine, Blood 0.6 mg/dL (0.40-1.00); Globulin, Blood 3.1 g/dL (2.2-4.0); Potassium, Blood 4.5 mmol/L (3.5-5.5); Total Protein, Blood 7.3 g/dL (6.4-8.2)
== END ==
LOC: LAB 11:21 → LAB SHORT 11:21
PROVIDERS: Family Medicine
DX: I15.8 Other secondary hypertension (principal)
CPT/HCPCS: 80053